=== PATIENT | female | born 1975 | race Caucasian/White ===

== ENCOUNTER 2019-01-26 02:01 | Emergency (ER) | payer OTHER ==
[~2019-01-26] VITALS: Ht 154.9 cm; Wt 122.9 kg
[2019-01-26 02:14] VITALS: Ht 154.9 cm; Wt 122.9 kg
[2019-01-26 05:32] VITALS: BP 157/68
== END 2019-01-26 05:32 | disposition home or self-care (01) ==
LOC: ED 02:01
DX: K21.9 Gastro-esophageal reflux disease without esophagitis (principal); I10 Essential (primary) hypertension
CPT/HCPCS: J1885; J2765; Q0092; Q0162

== ENCOUNTER 2019-09-17 07:16 | Emergency (ER) | payer OTHER ==
[~2019-09-17] VITALS: Ht 152.4 cm; Wt 95.3 kg
[2019-09-17 08:31] VITALS: Ht 152.4 cm; Wt 95.3 kg
[2019-09-17 09:26] LABS: CALCIUM 8.2 mg/dL (8.5-10.1); CARBON DIOXIDE 27.5 mmol/L (21-32); CHLORIDE SERUM 102 mmol/L (98-107); CREATININE SERUM 0.6 mg/dL (0.6-1.0); GFR1 > 60 mL/min; GLUCOSE SERUM 106 mg/dL (74-106); POTASSIUM SERUM 3.5 mmol/L (3.5-5.1); SODIUM SERUM 139 mmol/L (136-145)
[2019-09-17 09:30] LABS: ALBUMIN 3.4 g/dL (3.4-5.0); ALKALINE PHOSPHATASE 96 U/L (46-116); ALT/SGPT 42 U/L (14-59); AST/SGOT 43 U/L (15-37); BILIRUBIN TOTAL 0.26 mg/dL (0.20-1.00); LIPASE 108 IU/L (73-393); TOTAL PROTEIN, SERUM 7.7 g/dL (6.4-8.2); TRIGLYCERIDES 48 mg/dL (<150)
[2019-09-17 09:36] LABS: BASOPHIL % 0.3 % (0-2); CHOLESTEROL 98 mg/dL (<200); CHOLESTEROL/HDL RATIO 3.2; HDL CHOLESTEROL 31 mg/dL (40-60); PLATELET COUNT 238 x10^3mcL (130-400)
[2019-09-17 09:37] LABS: RED CELL DISTRIBUTION WIDTH 15.9 % (11.5-14.5)
[2019-09-17 09:38] LABS: rbc morphology (normal/abnorm) ABNORMAL (NORMAL)
[2019-09-17 09:42] LABS: T3 TOTAL 1.65 ng/mL
[2019-09-17 10:02] LABS: FREE T4 1.06 ng/dL (0.76-1.46); FREE THYROXINE INDEX 3.4 ug/dL (1.4-4.5); T4(THYROXINE) 11.4 ug/dL (4.7-13.3)
[2019-09-17 13:57] VITALS: BP 133/70
== END 2019-09-17 13:57 | disposition home or self-care (01) ==
LOC: ED 07:16
PROVIDERS: Specialist
DX: U07.1 COVID-19 (principal); J12.89 Other viral pneumonia; I10 Essential (primary) hypertension
CPT/HCPCS: 83880; 84439; Q0092; Q9967; U0003-CS